=== PATIENT | male | born 1970 | race Caucasian/White ===

== ENCOUNTER 2016-09-14 17:13 | Emergency (ER) | payer BC ==
[~2016-09-14 17:13] MED LIST: CIPRO500 MG PO; COMPAZINE10 M PO; FLOMAX0.4 MG PO; NORCO PO; PERCOCET 5/3251 TAB PO; TYLENOL500 MG PO
[2016-09-14] MEDS ORDERED: UROCIT-K10 ME1 PO (17:40)
[2016-09-14] MEDS ORDERED: ROSUVASTATIN CA20 MG PO (17:41)
[2016-09-14] MEDS ORDERED: ASPIR-LOW81 M1 PO (17:47)
== END 2016-09-14 19:57 ==
LOC: EDMED 17:13
PROC: 0C9PXZZ Drainage of Tonsils, External Approach (ICD-10-PCS; principal; 2016-09-14)
DX: J36 Peritonsillar abscess (principal)
CPT/HCPCS: J1100; J2270